=== PATIENT | female | born 1965 | race Caucasian/White ===

== ENCOUNTER 2024-03-27 10:08 | Emergency (ER) | payer BC, SELFPAY ==
[2024-03-27 10:42] VITALS: BMI 33.3
[2024-03-27 10:45] LABS: % Basophils 0.4 % (0-2); % Lymphocytes 32.8 % (20.5-51.1); % Monocytes 8.4 % (1.7-9.3); % Neutrophils 56.4 % (42.2-75.2); Absolute Eosinophils 0.1 10^3/uL (0-0.7); Absolute Lymphocytes 1.6 10^3/uL (1.2-3.4); Absolute Monocytes 0.4 10^3/uL (0.1-0.6); Absolute Neutrophils 2.8 10^3/uL (1.4-6.5); Hematocrit 41.5 % (37.0-47.0); Hemoglobin 14.2 g/dL (12.0-16.0); Mean Corp Hgb Conc. 34.2 g/dL (33.0-37.0); Mean Corpuscular Hgb 29.7 pg (27.0-31.0); Mean Corpuscular Volume 86.8 fL (81.0-99.0); Mean Platelet Volume 9.2 fL (7.4-10.4); Nucleated Red Blood Cells % 0 %; Platelet Count 267 10^3/uL (130-400); Red Blood Cell Count 4.78 10^6/uL (4.20-5.40); Red Cell Dist. Width 12.8 % (11.5-14.5); White Blood Cell Count 4.9 10^3/uL (4.8-10.8)
[2024-03-27 10:48] VITALS: BP 116/81
[2024-03-27 11:00] VITALS: BP 120/77
[2024-03-27 11:00] LABS: ALT (SGPT) 21 U/L (0-35); AST (SGOT) 23 U/L (14-36); Albumin 4.5 g/dl (3.5-5.0); Alkaline Phosphatase 120 U/L (38-126); Blood Urea Nitrogen 15 mg/dl (7-17); Calcium 9.7 mg/dl (8.4-10.2); Carbon Dioxide 24 mmol/L (22-30); Chloride 105 mmol/L (98-107); Estimated Creatinine Clearance > 125 ml/min; Glucose 92 mg/dl (70-99); Sodium 140 mmol/L (135-145); Total Bilirubin 0.9 mg/dl (0.2-1.3); Total Protein 6.9 g/dl (6.3-8.2); eGFR > 60.00
--- NOTE | 2024-03-27 11:09 | ED.GENMED ---
History of Present Illness
General
Chief Complaint: Chest Pain
Source: patient
Exam Limitations: none
Time Seen by Provider: 03/27/24 10:32
Nursing documentation reviewed up to this point in time: agreed with
Travel History
Have you had any contact with someone who has COVID-19?: No
Do you have any symptoms of coronavirus? Fever > 100 degrees, chills, cough, shortness of breath, sore throat, loss of taste or smell, muscle aches, or headache?: No
History of Present Illness
History of Present Illness:
Patient with history of asthma, presents to ED secondary to 10-day history of persistent nonproductive cough with chest discomfort. Today, while she was at work, she developed sudden onset of right-sided lower chest/upper abdominal pain, radiating
up to her jaw. Symptoms resolved spontaneously, but has returned 1 more time, with once again resolution. Denies fever or chills. Denies back pain. Denies leg pain or swelling. Denies trauma. Denies recent change in medications or diet.
Patient's has similar upper respiratory infection symptoms, prior to onset of her symptoms.
Past History
Past History
ED Past Medical History: GERD, Psychiatric (depression) and Other (ANKLYOSING SPOND)
ED Past Surgical History: Cholecystectomy, Gynecological and Tonsilectomy
Social History
Tobacco: Non-smoker
Alcohol: Occasional
Drug: None
Personal:
Living: with family
Employment: Employed
Review of Systems
Review of Systems
Allergies reviewed?: Yes
All Other Systems: ROS reviewed and negative except as documented in HPI and ROS
Constitutional: Reports no symptoms
EENT: Reports no symptoms
Respiratory: Reports cough and trouble breathing
Cardiac: Reports chest pain
ABD/GI: Reports abdominal pain
: Reports no symptoms
Musculoskeletal: Reports no symptoms
Skin: Reports no symptoms
Neurological: Reports no symptoms
Phy Exam
Physical Exam
Physical Exam:
Physical Exam
General: mild distress, not acutely ill. afebrile
Head: nc/at. eomi
Neck: supple. no meningeal signs.
Heart: s1/s2 regular rate and rhythm, no murmur. equal radial pulses.
Lungs: no acute respiratory distress. diffuse wheezing bilaterally. chest wall nontender to palpation.
Abdomen: normal bowel sounds. not tender.
Neuro: alert and oriented. no focal neurological deficits
Skin: no rash
Psychiatric: well kept. interactive and cooperative
Extremities: no edema. no calf tenderness.
Scores
Heart Score for Chest Pain Patients
STEMI patient?: Not applicable
Course
Orders/Labs/Results
Orders:
Orders
03/27/24 10:10
ECG [Electrocardiogram (*1)] Urgent
Reason for Study: Chest Pain
EKG- Treatment ONCE
03/27/24 10:22
Chest [CR Chest - 2 Views ] Urgent
Comment:
Reason For Exam: cough
03/27/24 10:28
Complete Blood Count/With Diff Urgent
Comprehensive Metabolic Panel Urgent
Magnesium Urgent
Comment: ADD ON
NT-proBNP Urgent
Troponin I Urgent
03/27/24 11:07
Add On- LAB Urgent
Tests Added?: magnesium
US Abdomen Complete/Upper Urgent
Comment:
Reason For Exam: RUQ, s/p cholecystectomy
03/27/24 11:08
Albuterol Nebs [Ventolin Nebules] 2.5 mg INH R NOW STA
Dexamethasone Sod Phosphate [Decadron] 10 mg IV NOW STA
Guaifenesin/Codeine Solution [Robitussin AC] 10 ml PO NOW STA
Ipratropium/Albuterol Sulfate [Duoneb] 3 ml INH R NOW STA
03/27/24 11:17
D-Dimer Urgent
03/27/24 10:28
03/27/24 10:28
Vital Signs
Initial and Last Documented VS:
Initial Vital Signs
Temp Pulse Resp Pulse Ox
98.4 F 75 18 98
03/27/24 10:18 03/27/24 10:18 03/27/24 10:18 03/27/24 10:18
Last Documented Vital Signs
Temp Pulse Resp BP Pulse Ox
98.4 F 95 15 128/74 90
03/27/24 10:18 03/27/24 13:15 03/27/24 13:15 03/27/24 13:00 03/27/24 13:15
MDM/Problems Addressed
MDM/Problems Addressed:
Patient with an unremarkable workup in ED, including blood work, chest x-ray, and ultrasound. Patient remains afebrile, helically stable, and without acute distress. Patient reports subjective improvement symptoms after treatment. History and
exam consistent with likely an acute bronchitis, triggering what appears to be reproducible chest pain secondary to pleurisy versus costochondritis from severe coughing. Patient agrees with treatment plan to discharge home, with recommendation for
PCP follow-up. Patient will be started on Zithromax, cough syrup, along with short course of prednisone.
*EKG
Interpreted by ED Provider?: Yes
EKG Intrepretation Date: 03/27/24
Heart Rate: 76
Rate: normal
Rhythm: sinus
[place]: normal axis
Interval: normal interval
*Critical Care Note
Total Time (30-74mins, 75-104mins- exclusive of procedures): Not Applicable
ED Attending Note
-
Portions of this chart may have been created with voice recognition software.� Occasional wrong word or��sound alike� substitutions may have occurred due to the inherent limitations of voice recognition software.
Discharge Plan
Departure
Patient Disposition: Home (Routine Discharge)
Date of Disposition: 03/27/24
Time of Disposition: 13:22
Patient with high blood pressure during this ER visit?: Yes
Discharge Problem:
Bronchitis
Instructions: Costochondritis (DC), Bronchitis, Adult ED
Prescriptions:
New
azithromycin [Zithromax] 250 mg tablet
250 mg PO DAILY Qty: 6 0RF
Rx Instructions:
Day 1: 500 mg po x 1
Day 2-5: 250 mg po daily
benzonatate 100 mg capsule
100 mg PO TID PRN (Reason: Cough) Qty: 20 0RF
prednisone 50 mg tablet
50 mg PO DAILY Qty: 2 0RF
No Action
aspirin [Aspir-Low] 81 MG tablet,delayed release (DR/EC)
81 mg PO DAILY
calcium carbonate 500 MG tablet
1,000 mg PO DAILY
pantoprazole 40 MG tablet,delayed release (DR/EC)
40 mg PO DAILY
magnesium oxide 500 MG capsule
500 mg PO DAILY
Duloxetine Delayed Release
30 mg PO DAILY
Nabumetone
1,000 mg PO BID
Referrals:
Simran Jules MD [Family Provider] -
Stand Alone Forms: Return to Work
Activity Restrictions/Additional Instructions:
As discussed, please follow-up with your primary care physician for reevaluation next week. Your prescriptions have been sent electronically to [facility] pharmacy in [place].
Interventions
Interventions:
*Risk Screen - Suicide Last Done: 03/27/24 10:42
*General Assessment Last Done: 03/27/24 10:42
*Neglect/Abuse Screening Last Done: 03/27/24 10:42
*ED COVID-19 Vaccine History Last Done: 03/27/24 10:18
*Nursing Disposition Last Done: 03/27/24 13:44
ED- Cardiac Assessment Last Done: 03/27/24 10:42
Discharge Date and Time
Discharge Date/Time: 03/27/24 13:44
Print Language: BRAZILIAN
[2024-03-27 11:12] LABS: NT-proBNP 45.7 pg/ml; Troponin I < 0.012 ng/ml
[2024-03-27 11:39] LABS: Magnesium 2.2 mg/dl (1.6-2.3)
[2024-03-27 11:50] LABS: D-Dimer 0.31 ug/mlFEU (0.00-0.50)
[2024-03-27] MEDS: DUONEB 3 ML INH (11:50)
[2024-03-27] MEDS: ROBITUSSIN AC 10 ML PO (11:50)
[2024-03-27] MEDS: VENTOLIN NEBULES 2.5 MG INH (11:51)
[2024-03-27] MEDS: DECADRON 10 MG IV (11:53)
[2024-03-27 11:58] VITALS: BP 121/68
[2024-03-27 12:00] VITALS: BP 116/65
[2024-03-27 13:00] VITALS: BP 128/74
== END 2024-03-27 13:44 | disposition home or self-care (01) ==
LOC: EMR 10:08
PROVIDERS: EMERGENCY PHYSICIAN Emergency Medicine; FAMILY PHYSICIAN Family Medicine
DX: J40 Bronchitis, not specified as acute or chronic (principal); R03.0 Elevated blood-pressure reading, without diagnosis of hypertension
CPT/HCPCS: 99285; 96374; 94640; 71046; 76700; 80053; 83735; 83880; 84484; 85025; 85379; 93005

== ENCOUNTER → 2024-06-04 20:13 | Outpatient (REF) | payer BC, SELFPAY | LOC: MRI 20:13 | PROVIDERS: ATTENDING PHYSICIAN Nurse Practitioner Family | DX: M45.0 Ankylosing spondylitis of multiple sites in spine (principal); M47.812 Spondylosis without myelopathy or radiculopathy, cervical region; M47.816 Spondylosis without myelopathy or radiculopathy, lumbar region; M47.814 Spondylosis without myelopathy or radiculopathy, thoracic region | CPT/HCPCS: 72148 ==

== ENCOUNTER → 2024-06-05 16:51 | Outpatient (REF) | payer BC, SELFPAY | LOC: RAD 16:51 | PROVIDERS: ATTENDING PHYSICIAN Family Medicine | DX: E04.2 Nontoxic multinodular goiter (principal) | CPT/HCPCS: 76536 ==

== ENCOUNTER → 2024-06-18 17:40 | Outpatient (REF) | payer BC, SELFPAY | LOC: MRI 17:40 | PROVIDERS: ATTENDING PHYSICIAN Nurse Practitioner Family | DX: M45.0 Ankylosing spondylitis of multiple sites in spine (principal); M47.812 Spondylosis without myelopathy or radiculopathy, cervical region; M47.816 Spondylosis without myelopathy or radiculopathy, lumbar region; M47.814 Spondylosis without myelopathy or radiculopathy, thoracic region | CPT/HCPCS: 72141; 72146 ==

== ENCOUNTER → 2024-07-10 11:33 | Outpatient (REF) | payer BC, SELFPAY ==
[2024-07-10 12:21] LABS: % Basophils 0.4 % (0-2); % Eosinophils 2.2 % (0-6); % Immature Granulocytes 0.2 % (0-0.5); % Lymphocytes 33.2 % (20.5-51.1); % Monocytes 10.3 % (1.7-9.3); % Neutrophils 53.7 % (42.2-75.2); Absolute Eosinophils 0.1 10^3/uL (0-0.7); Absolute Lymphocytes 1.5 10^3/uL (1.2-3.4); Absolute Monocytes 0.5 10^3/uL (0.1-0.6); Absolute Neutrophils 2.5 10^3/uL (1.4-6.5); Hemoglobin 14.7 g/dL (12.0-16.0); Mean Corp Hgb Conc. 34.2 g/dL (33.0-37.0); Mean Corpuscular Volume 87.8 fL (81.0-99.0); Mean Platelet Volume 9.4 fL (7.4-10.4); Nucleated Red Blood Cells % 0 %; Platelet Count 258 10^3/uL (130-400); Red Cell Dist. Width 13.2 % (11.5-14.5); White Blood Cell Count 4.6 10^3/uL (4.8-10.8)
[2024-07-10 12:45] LABS: ALT (SGPT) 23 U/L (0-35); AST (SGOT) 24 U/L (14-36); Albumin 4.4 g/dl (3.5-5.0); Alkaline Phosphatase 106 U/L (38-126); Blood Urea Nitrogen 17 mg/dl (7-17); Calcium 9.6 mg/dl (8.4-10.2); Carbon Dioxide 31 mmol/L (22-30); Chloride 102 mmol/L (98-107); Glucose 93 mg/dl (70-99); HDL Cholesterol 61 mg/dl; LDL Cholesterol, Calculated 102 mg/dl; Potassium 4.5 mmol/L (3.5-5.1); Sodium 142 mmol/L (135-145); Total Bilirubin 0.9 mg/dl (0.2-1.3); Total Cholesterol 175 mg/dl (50-199); Total Protein 6.7 g/dl (6.3-8.2); Triglyceride 62 mg/dl (10-149); Very Low Density Lipoprotein 12 mg/dl (0-30); eGFR > 60.00
[2024-07-10 13:00] LABS: Vitamin D, 25-OH*** 34.4 ng/mL (30-80)
[2024-07-10 13:14] LABS: TSH Reflex To Free T4 0.77 uIU/ml (0.47-4.68)
[2024-07-11 10:09] LABS: Glycohemoglobin (HgbA1c) 5.6 % (4.0-5.6)
== END ==
LOC: REG 11:33
PROVIDERS: ATTENDING PHYSICIAN Family Medicine
DX: R73.03 Prediabetes (principal); E78.00 Pure hypercholesterolemia, unspecified; E55.9 Vitamin D deficiency, unspecified; Z00.00 Encounter for general adult medical examination without abnormal findings; Z15.89 Genetic susceptibility to other disease; M47.816 Spondylosis without myelopathy or radiculopathy, lumbar region; M45.9 Ankylosing spondylitis of unspecified sites in spine; I89.0 Lymphedema, not elsewhere classified
CPT/HCPCS: 36415; 80053; 80061; 81220; 82306; 83036; 84443; 85025

== ENCOUNTER 2024-07-21 19:35 | Emergency (ER) | payer BC, SELFPAY ==
[2024-07-21] VITALS (7 sets, daily range): BP systolic 78–131; BP diastolic 55–88; BMI 34.8
--- NOTE | 2024-07-21 20:13 | ED.GENMED ---
History of Present Illness
<DWIGHT Reid - Last Filed: 07/22/24 02:36>
General
Chief Complaint: Abdominal Pain
Source: patient
Exam Limitations: none
Time Seen by Provider: 07/21/24 19:45
History of Present Illness
History of Present Illness:
This is a 59 year old female that comes in with c/o RLQ pain. 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 States that she went down and eat a Burger and soup for lunch. States that her pain was like a
knife stabbing her and she was nauseated. States that about 2 hours later she vomited into her napkin and the pain moved to the RLQ. States that this is an intense, persistent pain. States that she did have loose stool today. Denies any fever,
chills, chest pain, SOB, headache, dizziness, urinary burning
Past History
<DWIGHT Reid - Last Filed: 07/22/24 02:36>
Past History
ED Past Medical History: Asthma, Cancer (Skin CA), CHF, GERD, Hypercholesterolemia, Psychiatric (depression) and Other (Back and neck pain, Sleep apnea uses CPAP, Hiatal hernia, Uterine Fibroid, )
ED Past Surgical History: Cholecystectomy, Gynecological (LEEP), Tonsilectomy (and adenoids) and Other (Cervical laser surgery, Jaw surgery, Lipoma removed)
Social History
Tobacco: Former smoker
Alcohol: Occasional
Drug: None
Personal:
Living: with family
Employment: Employed
Review of Systems
<DWIGHT Reid - Last Filed: 07/22/24 02:36>
Review of Systems
All Other Systems: ROS reviewed and negative except as documented in HPI and ROS
Constitutional: Reports no symptoms; Denies fever or chills
EENT: Reports no symptoms
Respiratory: Reports no symptoms; Denies cough or trouble breathing
Cardiac: Reports no symptoms; Denies chest pain
ABD/GI: Reports abdominal pain, nausea and vomiting (Vomited into napkin); Denies diarrhea
: Reports no symptoms; Denies dysuria, frequency or urgency
Musculoskeletal: Reports no symptoms
Skin: Reports no symptoms
Psychiatric: Reports no symptoms
Phy Exam
<DWIGHT Reid - Last Filed: 07/22/24 02:36>
General Physical Exam
General Presentation: mild distress
General age: appears stated age
General Skin: warm, dry and cool
General Habitus: normal
General Mental: alert
General Hydration: dry mucous membranes
ENT Exam
ENT Exam: TM's normal, pharynx normal and neck supple
Eye Exam
Eye Exam: EOMI
Cardiovascular Exam
Cardiovascular Exam: regular rate/rhythm, no edema, no murmur and normal peripheral pulses
Pulmonary Exam
Pulmonary Exam: lungs clear, no respiratory distress, no rales, chest non tender, no crackles, no rhonchi, no wheezing and no cough
Gastrointestinal Exam
Gastrointestinal Exam: normal bowel sounds, soft, no organomegaly, no pulsatile mass, non distended and tender (RLQ tendereness with palpation)
Musculoskeletal Exam
Musculoskeletal Exam: full ROM and no edema
Skin Exam
Skin Exam: normal color, warm/dry, no rash and no petechia
Psychiatric Exam
Psychiatric Exam: normal mood/affect
Course
<DWIGHT Reid - Last Filed: 07/22/24 02:36>
Orders/Labs/Results
Orders:
Orders
07/21/24 19:45
IV Insert/Care/Rem.- Treatment PRN
Straight cath- Treatment ONCE
07/21/24 20:02
Complete Blood Count/With Diff Urgent
Comprehensive Metabolic Panel Urgent
Lipase Urgent
07/21/24 20:12
CT Abd/pelvis W Iv Cont Urgent
Comment:
Reason For Exam: RLQ pain
0.9% Sodium Chloride 1000 ml [Nss] 1,000 ml IV BOLUS
HYDROmorphone [Dilaudid] 1 mg IV NOW STA
Ondansetron Injectable [Zofran] 4 mg IV NOW STA
07/21/24 23:00
Urinalysis Reflex To Culture Urgent
Date Specimen was Collected: 07/21/24
Time Specimen was Collected: 19:45
07/22/24 00:05
Ketorolac [Toradol] 30 mg IV NOW STA
US Pelvis W Transvag Combined Urgent
Comment: r/o torsion ovary
Reason For Exam: right lower abd pain
07/22/24 01:51
Urine Microscopic Reflex Cult Urgent
Abnormal Lab Results
07/21/24 07/22/24
20:02 01:51
Absolute Neuts (auto) 7.3 H 10^3/uL
(1.4-6.5)
Lymphocytes % 18.7 L %
(20.5-51.1)
Carbon Dioxide 31 H mmol/L
(22-30)
Leukocyte Esterase Rfl Trace A
(Negative)
Urine Bacteria (Reflex) Few A
(Negative)
Urine Glucose Trace A
(Negative)
07/21/24 20:02
07/21/24 20:02
CBC normal, carbon dioxide slightly elevated. Urine negative for infection
Vital Signs
Initial and Last Documented VS:
Initial Vital Signs
Temp Pulse Resp BP Pulse Ox
98.7 F 87 20 123/88 100
07/21/24 19:40 07/21/24 19:40 07/21/24 19:40 07/21/24 19:40 07/21/24 19:40
Last Documented Vital Signs
Temp Pulse Resp BP Pulse Ox
98.7 F 86 21 112/57 96
07/21/24 19:40 07/22/24 02:45 07/22/24 02:45 07/22/24 02:00 07/22/24 02:45
<DWIGHT Sal - Last Filed: 07/22/24 09:15>
Orders/Labs/Results
Orders:
Orders
07/21/24 19:45
IV Insert/Care/Rem.- Treatment PRN
Straight cath- Treatment ONCE
07/21/24 20:02
Complete Blood Count/With Diff Urgent
Comprehensive Metabolic Panel Urgent
Lipase Urgent
07/21/24 20:12
CT Abd/pelvis W Iv Cont Urgent
Comment:
Reason For Exam: RLQ pain
0.9% Sodium Chloride 1000 ml [Nss] 1,000 ml IV BOLUS
HYDROmorphone [Dilaudid] 1 mg IV NOW STA
Ondansetron Injectable [Zofran] 4 mg IV NOW STA
07/21/24 23:00
Urinalysis Reflex To Culture Urgent
Date Specimen was Collected: 07/21/24
Time Specimen was Collected: 19:45
07/22/24 00:05
Ketorolac [Toradol] 30 mg IV NOW STA
US Pelvis W Transvag Combined Urgent
Comment: r/o torsion ovary
Reason For Exam: right lower abd pain
07/22/24 01:51
Urine Microscopic Reflex Cult Urgent
Abnormal Lab Results
07/21/24 07/22/24
20:02 01:51
Absolute Neuts (auto) 7.3 H 10^3/uL
(1.4-6.5)
Lymphocytes % 18.7 L %
(20.5-51.1)
Carbon Dioxide 31 H mmol/L
(22-30)
Leukocyte Esterase Rfl Trace A
(Negative)
Urine Bacteria (Reflex) Few A
(Negative)
Urine Glucose Trace A
(Negative)
07/21/24 20:02
07/21/24 20:02
Vital Signs
Initial and Last Documented VS:
Initial Vital Signs
Temp Pulse Resp BP Pulse Ox
98.7 F 87 20 123/88 100
07/21/24 19:40 07/21/24 19:40 07/21/24 19:40 07/21/24 19:40 07/21/24 19:40
Last Documented Vital Signs
Temp Pulse Resp BP Pulse Ox
98.7 F 86 21 112/57 96
07/21/24 19:40 07/22/24 02:45 07/22/24 02:45 07/22/24 02:00 07/22/24 02:45
<DWIGHT Reid - Last Filed: 07/22/24 02:36>
MDM/Problems Addressed
Differential Diagnosis Includes:
appendicitis. Renal calculus,
MDM/Problems Addressed:
This is a 59 year old female that comes in with c/o RLQ pain. States that her pain started in the central abd and then moved to the RLQ.
will check labs and get CT scan. Will medicate for pain and give IV fluids.
Back into see patient. Explained that her CT is normal. States that the pain medication helped some but she is still having pain. Will medicate further and get US to R/O ovarian torsion.
Into see patient. Explained that her Pelvic Ultrasound is also normal. this may be due to a pulled muscle or explained that the nerves form the back wrap around to the abd and this may be due to a back issue. Patient can use Tylenol or Ibuprofen for
pain. Follow up with the family doctor. Return with any concerns .
Chronic conditions affecting care:
NA
Acute Exacerbation and/or Progression of Chronic Illness:
NA
<DWIGHT Reid - Last Filed: 07/22/24 02:36>
*Radiology
Radiology exam reviewed: radiology read reviewed (CT night hawk- No definite CT findings to account for the reported pain/symptoms. NO appendicitis or colitis. NO evidence of small bowel obstruction. No free fluid or free air. Cholecystectomy,
Unremarkable Ct appearance of the biliary tract and pancreas. No evidence of hydroureteronephrosis or) and other (Ct cont-or obstructing stone. Unremarkable appearance of the pelvic viscera. No AAA US-No suspicious adnexal lesions. No evidence of
torsion. No significant free fluid. Unremarkable appearance of the uterus. )
*Pulse Oximetry
Patient hypoxic: no
*EKG
Interpreted by ED Provider?: NA
Rate: EKG- N/A
*Bosom Presser Interpretation
Rate: normal
Heart Rate: 84
Rhythm: sinus
*Critical Care Note
Total Time (30-74mins, 75-104mins- exclusive of procedures): Not Applicable
<DWIGHT Sal - Last Filed: 07/22/24 09:15>
Update Note
Update Note:
0914 am 07/21/24: Received Burke text from radiology stating that there is subtle enlargement of the appendix with subtle stranding of the fat findings mildly suspicious for appendicitis given the patient has right lower quadrant pain. I did speak
with patient at home she continues to have pain. I advised her to come back to the ER for evaluation. She agrees and will do so.
ED Attending Note
<DWIGHT Reid - Last Filed: 07/22/24 02:36>
-
Portions of this chart may have been created with voice recognition software.� Occasional wrong word or��sound alike� substitutions may have occurred due to the inherent limitations of voice recognition software.
Discharge Plan
Departure
Patient Disposition: Home (Routine Discharge)
Date of Disposition: 07/22/24
Time of Disposition: 02:34
Patient with high blood pressure during this ER visit?: No
Condition: Good
Covid-19: Not Applicable
Discharge Problem:
Right sided abdominal pain
Instructions: Abdominal Pain
Prescriptions:
No Action
venlafaxine [Effexor XR] 37.5 mg Capsule,Extended Release 24hr
37.5 mg PO DAILY
ibuprofen [Advil] 200 mg Tablet
600 mg PO DAILYPRN PRN (Reason: NECK PAIN)
rosuvastatin 5 mg Tablet
5 mg PO DAILY
Jardiance 10 mg Tablet
10 mg PO DAILY
acetaminophen [acetaminophen] 325 mg tablet
650 mg PO Q4HPRN PRN (Reason: mild pain) Qty: 1 0RF
oxycodone 5 mg tablet
5 mg PO Q4HPRN PRN (Reason: breakthrough/severe pain) Qty: 10 0RF
Referrals:
Simran Jules MD [Family Provider] - Call in 1-3 days for appt
Activity Restrictions/Additional Instructions:
As discussed, your blood work is normal. Your CT scan and Ultrasound are also normal. This may be a pulled groin muscle or discomfort due to your back as the nerves wrap around to the abdomen. You may use Tylenol 1000mg every 6 hours and alternate
with Ibuprofen 600mg every 6 hours with food. Please increase your water intake to 8-8oz glasses daily. Follow up with the family doctor for recheck. IF YOU HAVE INCREASED OR CHANGING PAIN, OR YOU HAVE ANY OTHER CONCERNS PLEASE RETURN TO THE
EMERGENCY ROOM, ..
Interventions
Interventions:
*Risk Screen - Suicide Last Done: 07/21/24 19:40
*General Assessment Last Done: 07/21/24 19:40
*Neglect/Abuse Screening Last Done: 07/21/24 19:40
ED- Fall Risk Assessment Last Done: 07/21/24 19:40
*ED COVID-19 Vaccine History Last Done: 07/21/24 19:40
*Nursing Disposition Last Done: 07/22/24 02:52
HV-Ajsqfv-Romcyxgpem Assessment Last Done: 07/21/24 19:51
Discharge Date and Time
Discharge Date/Time: 07/22/24 03:01
Print Language: UPPER SORBIAN
[2024-07-21 20:15] LABS: % Basophils 0.4 % (0-2); % Eosinophils 1.6 % (0-6); % Immature Granulocytes 0.2 % (0-0.5); % Lymphocytes 18.7 % (20.5-51.1); % Monocytes 6.1 % (1.7-9.3); Absolute Eosinophils 0.2 10^3/uL (0-0.7); Absolute Lymphocytes 1.9 10^3/uL (1.2-3.4); Absolute Monocytes 0.6 10^3/uL (0.1-0.6); Absolute Neutrophils 7.3 10^3/uL (1.4-6.5); Hematocrit 40.4 % (37.0-47.0); Hemoglobin 14.1 g/dL (12.0-16.0); Mean Corp Hgb Conc. 34.9 g/dL (33.0-37.0); Mean Corpuscular Hgb 29.7 pg (27.0-31.0); Mean Corpuscular Volume 85.2 fL (81.0-99.0); Mean Platelet Volume 8.9 fL (7.4-10.4); Nucleated Red Blood Cells % 0 %; Platelet Count 259 10^3/uL (130-400); Red Blood Cell Count 4.74 10^6/uL (4.20-5.40); Red Cell Dist. Width 13.5 % (11.5-14.5)
[2024-07-21] MEDS: ZOFRAN 4 MG IV (20:24)
[2024-07-21] MEDS: DILAUDID 1 MG IV (20:24)
[2024-07-21] MEDS: NSS 1000 IV (20:25)
[2024-07-21 20:28] LABS: ALT (SGPT) 25 U/L (0-35); AST (SGOT) 23 U/L (14-36); Albumin 4.6 g/dl (3.5-5.0); Alkaline Phosphatase 121 U/L (38-126); Blood Urea Nitrogen 17 mg/dl (7-17); Calcium 9.7 mg/dl (8.4-10.2); Carbon Dioxide 31 mmol/L (22-30); Chloride 102 mmol/L (98-107); Estimated Creatinine Clearance 107 ml/min; Glucose 96 mg/dl (70-99); Lipase 125 U/L (23-300); Sodium 141 mmol/L (135-145); Total Bilirubin 0.7 mg/dl (0.2-1.3); eGFR > 60.00
[2024-07-22] MEDS: TORADOL 30 MG IV (00:35)
[2024-07-22 01:56] VITALS: BP 118/62
[2024-07-22 01:59] LABS: Urine Albumin Negative (Neg - Trace); Urine Bilirubin Negative (Negative); Urine Character Clear (Clear); Urine Color Yellow; Urine Glucose Trace (Negative); Urine Ketone Negative (Negative); Urine Leukocyte Trace (Negative); Urine Nitrite Negative (Negative); Urine Occult Blood Negative (Negative); Urine Urobilinogen Negative (Neg - 1+)
[2024-07-22 02:00] VITALS: BP 112/57
[2024-07-22 02:22] LABS: Urine Bacteria Few (Negative); Urine Red Blood Cell 0-2 /HPF (0-2)
== END 2024-07-22 03:01 | disposition home or self-care (01) ==
LOC: EMR 19:35
PROVIDERS: EMERGENCY PHYSICIAN Emergency Medicine; FAMILY PHYSICIAN Family Medicine
DX: R10.31 Right lower quadrant pain (principal); R11.2 Nausea with vomiting, unspecified; R19.7 Diarrhea, unspecified; I50.9 Heart failure, unspecified; G47.30 Sleep apnea, unspecified; F32.A Depression, unspecified; E78.00 Pure hypercholesterolemia, unspecified; J45.909 Unspecified asthma, uncomplicated; K44.9 Diaphragmatic hernia without obstruction or gangrene; K21.9 Gastro-esophageal reflux disease without esophagitis; Z85.828 Personal history of other malignant neoplasm of skin; Z90.49 Acquired absence of other specified parts of digestive tract; Z87.891 Personal history of nicotine dependence; Z88.1 Allergy status to other antibiotic agents; Z88.2 Allergy status to sulfonamides
CPT/HCPCS: 99285; 96375 ×2; 96361; 96374; 74177; 76830; 76856; 80053; 81003; 81015; 83690; 85025; Q9967

== ENCOUNTER 2024-07-22 17:00 | Day surgery (SDC) | payer BC, SELFPAY ==
[2024-07-22] VITALS (10 sets, daily range): BP systolic 93–132; BP diastolic 66–82
--- NOTE | 2024-07-22 10:41 | ED.GENMED ---
History of Present Illness
General
Chief Complaint: Abdominal Pain
Source: patient and records
Time Seen by Provider: 07/22/24 10:26
History of Present Illness
History of Present Illness:
59yoF with a history of CHF and ankylosing spondylitis presenting for evaluation of abdominal pain. Symptoms initially started yesterday afternoon while eating lunch. She reports developing a knifelike pain in the center of her abdomen. The pain
migrated to the right lower quadrant a few hours later. The pain became severe so she came to the ED last night for evaluation. Patient had a CT abdomen as part of her ED evaluation. The CT scan was interpreted by [facility] with no signs of
appendicitis. Our radiology team read the study this morning with 'The appendix is slightly enlarged, and there is very subtle stranding of the fat surrounding the appendix. Given the history of right lower quadrant pain, these findings are mildly
to moderately suspicious for appendicitis.' Patient was called and advised to return to the ED for evaluation. Patient reports continued RLQ pain rated as a 7-8/10 in severity. Pain is worse with movement. No fevers or chills. Previous abdominal
surgeries include a cholecystectomy.
Past History
Past History
ED Past Medical History: Asthma, Cancer (Skin CA), CHF, GERD, Hypercholesterolemia, Psychiatric (depression) and Other (Back and neck pain, Sleep apnea uses CPAP, Hiatal hernia, Uterine Fibroid, )
ED Past Surgical History: Cholecystectomy, Gynecological (LEEP), Tonsilectomy (and adenoids) and Other (Cervical laser surgery, Jaw surgery, Lipoma removed)
Social History
Tobacco: Former smoker
Alcohol: Occasional
Drug: None
Personal:
Living: with family
Employment: Employed
Phy Exam
General Physical Exam
General Presentation: well appearing and no apparent distress
General age: appears stated age
General Skin: warm and dry
General Habitus: normal
General Mental: alert
Pulmonary Exam
Pulmonary Exam: no respiratory distress
Gastrointestinal Exam
Gastrointestinal Exam: soft, non distended, rebound and tender (+Focal tenderness to the RLQ with rebound)
Skin Exam
Skin Exam: normal color and warm/dry
Psychiatric Exam
Psychiatric Exam: normal mood/affect
Course
Orders/Labs/Results
Orders:
Orders
07/22/24 Lunch
NPO
Allow oral meds: Yes
Allow clear liquids: No
07/22/24 10:47
Complete Blood Count/With Diff Urgent
Comprehensive Metabolic Panel Urgent
07/22/24 10:57
Piperacillin/Tazo 4.5 Gram [Zosyn] 4.5 gram in 100 ml IV NOW
07/22/24 11:34
Acetaminophen [Tylenol] 1,000 mg PO Q6HPRN PRN
HYDROmorphone [Dilaudid] 0.5 mg IV Q3HPRN PRN
Abnormal Lab Results
07/22/24
10:47
Glucose 127 H mg/dl
(70-99)
Total Protein 6.0 L g/dl
(6.3-8.2)
07/22/24 10:47
07/22/24 10:47
Vital Signs
Initial and Last Documented VS:
Initial Vital Signs
Temp Pulse Resp BP Pulse Ox
99 F 85 16 104/82 98
07/22/24 09:59 07/22/24 09:59 07/22/24 09:59 07/22/24 09:59 07/22/24 09:59
Last Documented Vital Signs
Temp Pulse Resp BP Pulse Ox
99 F 85 16 104/82 98
07/22/24 09:59 07/22/24 09:59 07/22/24 10:38 07/22/24 09:59 07/22/24 09:59
MDM/Problems Addressed
Differential Diagnosis Includes:
59yoF here with an abnormal CT. Seen in ED last night for RLQ pain. [facility] saw no evidence of appendicitis last night. Our radiology team interpreted the study today with possible appendicitis. She c/o continued pain. She is afebrile and
hemodynamically stable. There is focal tenderness in the right lower quadrant on exam with rebound. Differential diagnosis includes but is not limited to: Appendicitis, perforation, mesenteric adenitis, nonspecific abdominal pain
Initial ED plan: Establish IV access and check CBC/CMP. Will consult general surgery.
*Critical Care Note
Total Time (30-74mins, 75-104mins- exclusive of procedures): Not Applicable
Update Note
Update Note:
Labs unremarkable including normal white count. Patient evaluated by general surgery and she was admitted for further management.
ED Attending Note
-
Portions of this chart may have been created with voice recognition software.� Occasional wrong word or��sound alike� substitutions may have occurred due to the inherent limitations of voice recognition software.
Discharge Plan
Departure
Patient Disposition: Admit
Date of Disposition: 07/22/24
Time of Disposition: 11:22
Presentation/result/management discussed w/ accepting MD/DO: Dr. Membreno
Discharge Problem:
Acute appendicitis
Prescriptions:
No Action
venlafaxine [Effexor XR] 37.5 mg Capsule,Extended Release 24hr
37.5 mg PO DAILY
ibuprofen [Advil] 200 mg Tablet
600 mg PO DAILYPRN PRN (Reason: NECK PAIN)
rosuvastatin [Crestor] 5 mg Tablet
5 mg PO DAILY
Jardiance 10 mg Tablet
10 mg PO DAILY
Referrals:
Simran Jules MD [Family Provider] -
Interventions
Interventions:
*Risk Screen - Suicide Last Done: 07/22/24 09:59
*General Assessment Last Done: 07/22/24 09:59
*Neglect/Abuse Screening Last Done: 07/22/24 09:59
*ED COVID-19 Vaccine History Last Done: 07/22/24 10:35
OS-Beukul-Mdswrauysg Assessment Last Done: 07/22/24 10:38
Discharge Date and Time
Print Language: [place]
[2024-07-22 11:06] LABS: % Basophils 0.5 % (0-2); % Eosinophils 1.9 % (0-6); % Immature Granulocytes 0.3 % (0-0.5); % Lymphocytes 20.9 % (20.5-51.1); % Monocytes 8.8 % (1.7-9.3); % Neutrophils 67.6 % (42.2-75.2); Absolute Eosinophils 0.1 10^3/uL (0-0.7); Absolute Lymphocytes 1.2 10^3/uL (1.2-3.4); Absolute Monocytes 0.5 10^3/uL (0.1-0.6); Hematocrit 38.6 % (37.0-47.0); Hemoglobin 13.3 g/dL (12.0-16.0); Mean Corp Hgb Conc. 34.5 g/dL (33.0-37.0); Mean Corpuscular Hgb 30.4 pg (27.0-31.0); Mean Corpuscular Volume 88.3 fL (81.0-99.0); Mean Platelet Volume 9.2 fL (7.4-10.4); Nucleated Red Blood Cells % 0 %; Platelet Count 218 10^3/uL (130-400); Red Blood Cell Count 4.37 10^6/uL (4.20-5.40); Red Cell Dist. Width 13.5 % (11.5-14.5); White Blood Cell Count 5.9 10^3/uL (4.8-10.8)
[2024-07-22] MEDS: ZOSYN 100 IV (11:11)
--- NOTE | 2024-07-22 11:15 | HPS.HSE ---
Family Physician
-
Family Physician: Simran Jules MD
Chief Complaint
-
RLQ abdominal pain
History of Present Illness
Patient is a 59 yo F with a PMH of GERD, HLD, CHF, asthma, REKHA (on CPAP), ankylosing spondylitis, chronic back pain, s/p laparoscopic cholecystectomy, s/p LEEP procedure, s/p excision of skin cancer, and s/p excision of extremity lipomas. Ms. Riddle
states that her symptoms began acutely yesterday afternoon as a more generalized periumbilical discomfort which is localized to the RLQ throughout the course of the day. She felt well prior to this and denies any sick contacts. Associated nausea,
and mild episodes of vomiting. No fevers or chills. She reports looser, nonbloody stools. She reports a normal prior colonoscopy, but none listed in our system.
She initially presented to the ED yesterday evening. Labs were unremarkable and initial report from CT scan imaging was normal. She was ultimately discharged; of note, no abx. Final read on CT scan imaging demonstrates a mildly prominent appendix
with some subtle soft tissue stranding concerning for early appendicitis prompting re-presentation. She has had persistent RLQ abdominal pain.
Of note, she was recently found on an MRI of her cervical and thoracic spine to have degenerative disc disease with small disc herniations at C3/C4 and C4/C5 with some cord compression. Because of these findings she was started on steroids, which
she has yet to start. She is not on any chronic immunosuppression for her ankylosing spondylitis.
Medical History
Past Medical History
Past Medical History: Reports Asthma, CHF, GERD, Hypercholesterolemia, Psychiatric (Depression) and Other (Ankylosing spondylitis, chronic back pain, REKHA (on CPAP))
Past Surgical History: Reports Cholecystectomy, Gynocological (LEEP, cervical ablation) and Other ( Jaw surgery, s/p excision of skin cancer, s/p excision of lipomas)
Social History
Tobacco: Former Smoker
Alcohol: Occasional
Drug: None
Family History
Family History: Not pertinent
Allergies / Home Medications
Allergies reflects when Allergies were last updated in [employer].
Home Medications with original date entered in [employer]
Allergy/Medication List:
Sulfa (N/V), Erythromycin (hives)
Review of Systems
-
A 12 point ROS was completed and negative except as noted: Yes
Physical Exam
Vital Signs
Vital Signs
Temp Pulse Resp BP Pulse Ox
99 F 85 16 104/82 98
07/22/24 09:59 07/22/24 09:59 07/22/24 10:38 07/22/24 09:59 07/22/24 09:59
Physical Exam
General: Well Developed, Well Nourished and No Apparent Distress
HEENT: NormoCephalic and Anicteric
Respiratory: Non Labored Respirations
Cardiac: Regular Rhythm
GI: Soft, Non Distended, Tender (RLQ) and Other (Rebound tenderness in RLQ, no involuntary guarding, prior incisions well-healed)
Skin: Warm and Dry
Neuro: Nonfocal/grossly intact
Laboratory Results
-
07/22/24 10:47
Data Reviewed
-
CT Scan: Image Personally Visualized and interpreted and Report Reviewed by me
Lab Data: Labs Reviewed by me
Impression/Plan
-
IMPRESSION:
Patient is a 59 yo F p/w acute appendicitis
The natural history and pathophysiology of appendicitis was discussed. Anatomy was reviewed. CT scan imaging as relates to her appendix was reviewed. Options for management including medical management with antibiotics versus surgical management
with appendectomy were considered and discussed. The pros and cons of both approaches was discussed. Specifically, we discussed further medical management and future episodes of appendicitis versus surgical risks. Given her CT scan findings and
persistent pain recommend appendectomy.
Plan for laparoscopic appendectomy. The procedure itself, as well as the risks, benefits, and alternatives was discussed. Specifically, we discussed bleeding, infection, injury to surrounding structures (bowel, bladder), staple line leak, need for
open procedure. Typical postprocedure recovery was discussed. All questions answered. Consent signed.
Of note, patient reports that her last meal was a bagel at 8:30 AM
PLAN:
-- Laparoscopic appendectomy
-- NPO, IVF
-- Pain control: Tylenol and IV Dilaudid as needed
-- Abx: Zosyn
-- Likely admit postoperatively pending timing of surgery and operative course.
[2024-07-22 11:19] LABS: ALT (SGPT) 23 U/L (0-35); AST (SGOT) 22 U/L (14-36); Albumin 3.9 g/dl (3.5-5.0); Alkaline Phosphatase 98 U/L (38-126); Blood Urea Nitrogen 13 mg/dl (7-17); Carbon Dioxide 26 mmol/L (22-30); Chloride 104 mmol/L (98-107); Glucose 127 mg/dl (70-99); Sodium 140 mmol/L (135-145); eGFR > 60.00
--- NOTE | 2024-07-22 13:18 | W.SUR.PREOP ---
Pre-Operative Surgical Note
-
I have examined this patient prior to the performance of the scheduled procedure.
The patient's condition is unchanged from the time of the current History and
Physical and the patient is able to undergo the scheduled procedure.
--- NOTE | 2024-07-22 16:50 | W.IMMPOSTOP ---
Addendum entered and electronically signed by Magdiel Membreno MD 07/23/24 09:56:
[facility]# [id number]
Original Note:
Surgical Immed Post Op Note
-
Primary Surgeon: Temi
Assisting Surgeon: SHERRI Ramsey
Pre-op Diagnosis: Acute appendicitis
Post-op Diagnosis: Acute appendicitis
Procedure Performed: Laparoscopic appendectomy
Anesthesia Type: General
Specimen / Cultures:
1. Appendix
Estimated Blood Loss: 3 cc
Complications: None
Operative Findings:
1. Mildly inflamed appendix, no significant adhesions, feculent or purulent contamination
2. Mesentery taken with Vostaciat, base with restrepo load stapler
Plan:
-- DC this evening versus tomorrow AM, pending diet tolerance and pain
[2024-07-22] MEDS: NORMOSOL-R/PLASMALYTE-A 1000 IV (17:41)
--- NOTE | 2024-07-22 18:09 | PTCARENOTE ---
Pt arrived to 2S in bed. Full assessment completed. Abdominal incisions C/D/I, glued and [employer]. IVF infusing per order. Pt educated on regular diet and call delatorre. Bed locked and in the lowest position, safety maintained. Oriented to room and call
delatorre.
[2024-07-22] MEDS: TYLENOL 650 MG PO (20:27)
[2024-07-23] MEDS: TYLENOL PO (02:10)
[2024-07-23 04:00] VITALS: BP 113/67
[2024-07-23] MEDS: TYLENOL 650 MG PO ×2 (04:42→09:51)
[2024-07-23 07:26] VITALS: BP 124/73
--- NOTE | 2024-07-23 07:27 | W.PN.GS2 ---
Today's Communication / Plan
-
-- DC today
Assessment / Plan
-
Patient is a 59 yo F POD#1 s/p laparoscopic appendectomy
Recovering well. No postoperative concerns.
-- Regular diet
-- Pain control: Tylenol, Toradol, Oxycodone
-- HLIV
-- Home medications
-- No need for further abx
-- DVT: Lovenox
-- DC today
Subjective Data
-
Date of Service: July 23, 2024
No complaints. Pain well-controlled. No nausea or vomiting. Mild ooze from umbilical incision requiring gauze and tape overnight. Voiding. Minimal ambulation. Passing flatus, no BM.
Objective Data
-
Intake and Output
07/22/24 07/23/24 07/24/24
06:59 06:59 06:59
Intake Total 1530 / 1530
Balance 1530 / 1530
Intake:
Oral fluids 480 / 480
IV fluids (Total) 1050 / 1050
Normosol 100 / 100
Other:
Number of approximated MODERATE 4
amounts of urine
Vital Signs
Temp Pulse Resp BP Pulse Ox
97.9 F 71 18 113/67 98
07/23/24 04:00 07/23/24 04:00 07/23/24 04:00 07/23/24 04:00 07/23/24 04:00
Lab Results
07/22/24 10:47
07/22/24 10:47
Calcium 9.0 mg/dl (8.4-10.2) 07/22/24 10:47
Total Bilirubin 1.0 mg/dl (0.2-1.3) 07/22/24 10:47
AST 22 U/L (14-36) 07/22/24 10:47
ALT 23 U/L (0-35) 07/22/24 10:47
Alkaline Phosphatase 98 U/L (38-126) 07/22/24 10:47
Total Protein 6.0 g/dl (6.3-8.2) L 07/22/24 10:47
Albumin 3.9 g/dl (3.5-5.0) 07/22/24 10:47
Physical Exam
-
Gen: NAD
Abd: soft, mild tenderness, ND, non-peritoneal, incisions c/d/i - no erythema or drainage, mild ecchymosis at umbilical incision
--- NOTE | 2024-07-23 07:32 | W.DS.TRANS ---
DC Summary - [employer]
-
Discharge Instructions:
Discharge Diagnosis/Procedures Laparoscopic appendectomy
Diet Regular
Activity No strenuous activity
Additional Activity No lifting (>20 lbs) or strenuous activities for
2 weeks postoperatively
Driving Restrictions No driving if too sore or taking narcotics
Bathing Restrictions OK to Shower
Wound Care Keep incisions clean and dry. Glue will flake
off in 2 to 3 weeks. Stitches will dissolve.
Use ice to the abdomen to reduce any bruising or
swelling.
Instructions:
Stand-Alone Forms:
Changes to Home Medications: Yes
Discharge Medications:
DC Medications w/original date entered in [employer]
acetaminophen 325 mg tablet 650 mg (2 x 325 mg) PO Q4HPRN PRN mild pain #1 tab 07/22/24
empagliflozin 10 mg tablet (Jardiance) 10 mg PO DAILY 07/22/24
ibuprofen 200 mg tablet (Advil) 600 mg PO DAILYPRN PRN NECK PAIN 07/22/24
oxycodone 5 mg tablet 5 mg PO Q4HPRN PRN breakthrough/severe pain #10 tabs 07/22/24
rosuvastatin 5 mg tablet 5 mg PO DAILY 07/22/24
venlafaxine 37.5 mg capsule,extended release 24 hr (Effexor XR) 37.5 mg PO DAILY 07/22/24
Home Medication Changes
Pending Results: No
--- NOTE | 2024-07-23 09:45 | CM ---
POD 1 - Post-op lap appendectomy
Met with pt at bedside
Reports lives with in a 2 story home. 2 steps to enter, 12 steps to 2nd fl
Independent, working FT, drives
DME - none
SNF/HH - denies past hx
Has ride at discharge
PCP - DR Simran Jules
Pharm - [facility]
Plan - anticipate home no needs
[2024-07-23] MEDS: FARXIGA 10 MG PO (09:51)
[2024-07-23] MEDS: CRESTOR 5 MG PO (09:51)
[2024-07-23] MEDS: EFFEXOR XR 37.5 MG PO (09:51)
[2024-07-23 11:29] VITALS: BP 102/71
== END 2024-07-23 12:15 | disposition home or self-care (01) ==
LOC: PACU 17:00
PROVIDERS: Physician Assistant; ATTENDING PHYSICIAN Surgery; EMERGENCY PHYSICIAN Emergency Medicine; FAMILY PHYSICIAN Family Medicine
DX: K35.80 Unspecified acute appendicitis (principal)
CPT/HCPCS: 44970; 88304; 80053; 85025; 99284; C1776

== ENCOUNTER → 2025-01-14 13:20 | Outpatient (REF) | payer BC, SELFPAY | LOC: WDC 13:20 | PROVIDERS: ATTENDING PHYSICIAN Family Medicine | DX: Z12.31 Encounter for screening mammogram for malignant neoplasm of breast (principal); Z13.820 Encounter for screening for osteoporosis | CPT/HCPCS: 77063; 77067; 77080 ==

== ENCOUNTER → 2025-06-24 12:51 | Outpatient (REF) | payer BC, SELFPAY | LOC: RAD 12:51 | PROVIDERS: ATTENDING PHYSICIAN Family Medicine | DX: M79.674 Pain in right toe(s) (principal); M25.562 Pain in left knee | CPT/HCPCS: 73564; 73630 ==

== ENCOUNTER → 2025-09-08 19:32 | Outpatient (REF) | payer BC, SELFPAY | LOC: PAVMRI 19:32 | PROVIDERS: ATTENDING PHYSICIAN Family Medicine | DX: M25.562 Pain in left knee (principal) | CPT/HCPCS: 73721 ==

== ENCOUNTER → 2025-11-11 15:35 | Outpatient (REF) | payer BC, SELFPAY | LOC: MRI 3T 15:35 | PROVIDERS: ATTENDING PHYSICIAN Family Medicine | DX: M79.645 Pain in left finger(s) (principal) | CPT/HCPCS: 73218 ==